=== PATIENT | female | born 1945 | race Caucasian/White ===

== ENCOUNTER 2020-02-21 18:33 | Emergency (ER) | payer BC ==
--- OUTSIDE RECORDS SUMMARY | 2020-02-21 18:36 | XMS REPORT | Continuity of Care Document ---
:1945 Author Organization [facility] t Address [address] [place] [id number] Care Team Providers Name Role Phone Lavelle LAWLER Attending Clinician Problems This patient has no known problems. Allergies, Adverse Reactions, Alerts This patient has no known allergies or adverse reactions. Medications This patient has no known medications. Procedures This patient has no known procedures. Encounters Start End Encounter Admission Attending Care Care Encounter Source Date/Time Date/Time Type Type Clinicians Facility Department ID 2019-12-13 2019-12-13 Emergency E [facility] [id number] [facility] 18:53:00 18:53:00 [facility] 2019-06-24 2019-06-24 Office ANIKA Valderrama [id number] 10:42:59 11:12:59 Visit Frances AMBULATOR [id number] Y [id number] 2019-05-25 2019-05-25 Outpatient E [facility] [id number] [facility] 10:38:00 10:38:00 2018-11-21 2018-11-21 Office ANIKA Valderrama [id number] 30 12:35:54 16:38:29 Visit Frances AMBULATOR [id number] Y [id number] Results This patient has no known results.
[2020-02-21 19:05] LABS: Absolute Lymphocytes (CBC) 0.9 K/uL (0.7-4.9); Basophils % 1.3 % (0-1.3); Hematocrit 39.4 % (36.0-45.0); Lymphocytes % 27.5 % (15.3-44.8); MPV 6.8 fL (7.6-11.3); RBC Red Blood Cell Count 4.26 M/uL (3.86-4.86)
[2020-02-21 19:07] LABS: Protime INR 0.9
[2020-02-21] MEDS ORDERED: NA CHLORIDE 0.9% 500 ML ONE (19:11)
[2020-02-21] MEDS ORDERED: NA CHLORIDE 0.9% 1,000 ML ONE (19:12)
[2020-02-21] MEDS ORDERED: FOLIC ACID 5 MG/ML VIAL ONE (19:12)
[2020-02-21 19:28] LABS: ALT/SGPT 30 U/L (12-78); AST/SGOT 24 U/L (15-37); Albumin 4.4 g/dL (3.4-5.0); Alkaline Phosphatase 47 U/L (45-117); BUN Blood Urea Nitrogen 13 mg/dL (7-18); Bicarbonate 32 mmol/L (21-32); Bilirubin Direct 0.2 mg/dL (0-0.2); Bilirubin Total 0.8 mg/dL (0.2-1.0); Glucose Level 92 mg/dL (74-106); Magnesium 2.3 mg/dL (1.8-2.4); NT PRO-BNP 212 pg/mL (<125); Potassium 3.2 mmol/L (3.5-5.1); Protein, Total 7.6 g/dL (6.4-8.2); Sodium Level 135 mmol/L (136-145); Troponin (Emerg Dept Use Only) < 0.02 ng/mL (0.0-0.045)
--- NOTE | 2020-02-21 19:54 | RAD REPORT ---
EXAM DESCRIPTION: Dylan Single View02/21/2020 7:28 pm CLINICAL HISTORY: cough COMPARISON: none FINDINGS: The lungs are moderately hyperaerated. The lungs appear clear of acute infiltrate. The heart is normal size IMPRESSION: COPD without visualization of acute abnormality
[2020-02-21] MEDS ORDERED: AMLODIPINE 5 MG TAB ONE (20:00)
[2020-02-21] MEDS ORDERED: POTASSIUM 25 MEQ EFFERV TAB ONE (20:00)
[2020-02-21] MEDS ORDERED: LABETALOL HCL 100 MG/20 ML ONE (20:01)
[2020-02-21] MEDS ORDERED: LABETALOL 20 MG/4ML SYRINGE IV ONE (20:26)
--- NOTE | 2020-02-21 20:33 | RAD REPORT ---
EXAM DESCRIPTION: CT - Head Brain Wo Cont - 02/21/2020 8:03 pm CLINICAL HISTORY: Alteration of awareness/confusion COMPARISON: None TECHNIQUE: Computed axial tomography of the head was obtained. IV contrast was not requested. All CT scans are performed using dose optimization technique as appropriate and may include automated exposure control or mA/KV adjustment according to patient size. FINDINGS: An intracranial bleed is not seen . The third and lateral ventricles are prominent. Mild cortical atrophy is present. No extra-axial fluid collection is noted. Mild low-density areas within periventricular, deep and subcortical white matter likely represent isc hemic changes secondary to small vessel disease. Fluid within the sinuses/ mastoids is not seen. IMPRESSION: Third and lateral ventricles are prominent. This may be secondary to white matter atroph y. Normal pressure hydrocephalus can have this appearance but is probably less likely. This should be correlated clinically
[2020-02-21 20:59] LABS: Urine Blood TRACE (NEG); Urine Glucose NEGATIVE (NEG); Urine Protein NEGATIVE (NEG); Urine pH 7.5 (5.0-7.0)
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
--- NOTE | 2020-02-21 21:04 | EDPHYS ---
Physician Documentation [facility] Manuel Name: Taylor Womack Age: 74 yrs Sex: Female : 1945 Arrival Date: 02/21/2020 Time: 18:41 Bed 15 Private MD: ED Physician Rob Monterroso HPI: 02/20 18:52 This 74 yrs old Female presents to ER via EMS with complaints of Altered rajat Mental Status. 18:52 The patient presents with trouble concentrating. Onset: The symptoms/episode rajat began/occurred just prior to arrival. Possible causes: CVA or TIA, head injury, low blood sugar, the patient apparently forgot to eat. Associated signs and symptoms: Pertinent positives: confusion, weakness, at baseline now. Current symptoms: In the emergency department the patient's symptoms have improved, moderately. Patient's baseline: Neuro: alert and fully oriented. The patient has not experienced similar symptoms in the past. Historical: - Allergies: 18:47 No Known Allergies; ll1 - PMHx: 18:47 Hypertension; ll1 - Immunization history:: Flu vaccine is up to date. - Social history:: Smoking status: Patient denies any tobacco usage or history of. - Family history:: not pertinent. ROS: 18:52 Constitutional: Negative for fever, chills, and weight loss, Eyes: Negative for injury, rajat pain, redness, and discharge, ENT: Negative for injury, pain, and discharge, Neck: Negative for injury, pain, and swelling, Cardiovascular: Negative for chest pain, palpitations, and edema, Respiratory: Negative for shortness of breath, cough, wheezing, and pleuritic chest pain, Abdomen/GI: Negative for abdominal pain, nausea, vomiting, diarrhea, and constipation, Back: Negative for injury and pain, : Negative for injury, bleeding, discharge, and swelling, MS/Extremity: Negative for injury and deformity, Skin: Negative for injury, rash, and discoloration, Psych: Negative for depression, anxiety, suicide ideation, homicidal ideation, and hallucinations, Allergy/Immunology: Negative for hives, rash, and allergies, Endocrine: Negative for neck swelling, polydipsia, polyuria, polyphagia, and marked weight changes, Hematologic/Lymphatic: Negative for swollen nodes, abnormal bleeding, and unusual bruising. 18:52 Neuro: Positive for altered mental status, weakness. Exam: 18:52 Constitutional: This is a well developed, well nourished patient who is awake, alert, rajat and in no acute distress. Head/Face: Normocephalic, atraumatic. Eyes: Pupils equal round and reactive to light, extra-ocular motions intact. Lids and lashes normal. Conjunctiva and sclera are non-icteric and not injected. Cornea within normal limits. Periorbital areas with no swelling, redness, or edema. ENT: Nares patent. No nasal discharge, no septal abnormalities noted. Tympanic membranes are normal and external auditory canals are clear. Oropharynx with no redness, swelling, or masses, exudates, or evidence of obstruction, uvula midline. Mucous membranes moist. Neck: Trachea midline, no thyromegaly or masses palpated, and no cervical lymphadenopathy. Supple, full range of motion without nuchal rigidity, or vertebral point tenderness. No Meningismus. Chest/axilla: Normal chest wall appearance and motion. Nontender with no deformity. No lesions are appreciated. Cardiovascular: Regular rate and rhythm with a normal S1 and S2. No gallops, murmurs, or rubs. Normal PMI, no JVD. No pulse deficits. Respiratory: Lungs have equal breath sounds bilaterally, clear to auscultation and percussion. No rales, rhonchi or wheezes noted. No increased work of breathing, no retractions or nasal flaring. Abdomen/GI: Soft, non-tender, with normal bowel sounds. No distension or tympany. No guarding or rebound. No evidence of tenderness throughout. Back: No spinal tenderness. No costovertebral tenderness. Full range of motion. Female : Normal external genitalia. Skin: Warm, dry with normal turgor. Normal color with no rashes, no lesions, and no evidence of cellulitis. MS/ Extremity: Pulses equal, no cyanosis. Neurovascular intact. Full, normal range of motion. Neuro: Awake and alert, GCS 15, oriented to person, place, time, and situation. Cranial nerves II-XII grossly intact. Motor strength 5/5 in all extremities. Sensory grossly intact. Cerebellar exam normal. Normal gait. Psych: Awake, alert, with orientation to person, place and time. Behavior, mood, and affect are within normal limits. 19:16 ECG was reviewed by the Attending Physician. [facility] Vital Signs: 18:41 BP 195 / 106; Pulse 73; Resp 16; Temp 97.7(O); Pulse Ox 100% on R/A; Weight 45.36 kg; 3 Height 5 ft. 8 in. (172.72 cm); Pain 0/10; 19:30 BP 206 / 110; Pulse 67; Resp 16; Pulse Ox 100% on R/A; jb4 20:30 BP 174 / 96; Pulse 67; Resp 16; Pulse Ox 100% on R/A; jb4 21:30 BP 156 / 86; Pulse 70; Resp 16; Pulse Ox 98% on R/A; jb4 18:41 Body Mass Index 15.20 (45.36 kg, 172.72 cm) 3 NIH Stroke Scale Scores: 18:52 NIHSS Score: 0 rajat MDM: 18:42 Patient medically screened. rajat 18:55 Differential Diagnosis: CVA, electrolyte abnormality, hypoglycemia, pneumonia, TIA, rajat UTI, volume depletion. Data reviewed: vital signs, nurses notes, lab test result(s), EKG, radiologic studies. Data interpreted: patient monitor: rate is 73 beats/min, rhythm is regular, Pulse oximetry: on room air is 100 %. Test interpretation: by ED physician or midlevel provider: ECG, plain radiologic studies. Counseling: I had a detailed discussion with the patient and/or guardian regarding: the historical points, exam findings, and any diagnostic results supporting the discharge/admit diagnosis, lab results, radiology results, the need for further work-up and treatment in the hospital. 21:01 ED course: I discussed the patient with Dr. Sams whom accepted the patient for [facility] admission. . 02/20 18:52 Order name: Basic Metabolic Panel; Complete Time: 19:36 [facility] 02/20 18:52 Order name: CBC with Diff; Complete Time: 19:15 [facility] 02/20 18:52 Order name: LFT's; Complete Time: 19:36 [facility] 02/20 18:52 Order name: Magnesium; Complete Time: 19:36 [facility] 02/20 18:52 Order name: NT PRO-BNP; Complete Time: 19:36 [facility] 02/20 18:52 Order name: PT-INR; Complete Time: 19:15 [facility] 02/20 18:52 Order name: Troponin (emerg Dept Use Only); Complete Time: 19:36 [facility] 02/20 18:52 Order name: XRAY Chest (1 view); Complete Time: 20:08 [facility] 02/20 18:52 Order name: CT Head Brain wo Cont; Complete Time: 20:34 [facility] 02/20 18:52 Order name: Urine Culture [facility] 02/20 19:05 Order name: Sed Rate; Complete Time: 19:51 [facility] 02/20 19:05 Order name: CRP; Complete Time: 19:36 [facility] 02/20 20:47 Order name: Urine Dipstick--Ancillary (enter results); Complete Time: 21:00 [facility] 02/20 18:52 Order name: EKG; Complete Time: 18:52 [facility] 02/20 18:52 Order name: Cardiac monitoring; Complete Time: 19:30 [facility] 02/20 18:52 Order name: EKG - Nurse/Tech; Complete Time: 18:54 [facility] 02/20 18:52 Order name: IV Saline Lock; Complete Time: 19:05 [facility] 02/20 18:52 Order name: Labs collected and sent; Complete Time: 19:05 [facility] 02/20 18:52 Order name: O2 Per Protocol; Complete Time: 19:05 [facility] 02/20 18:52 Order name: O2 Sat Monitoring; Complete Time: 19:05 [facility] 02/20 18:52 Order name: Urine Dipstick-Ancillary (obtain specimen); Complete Time: 20:47 [facility] 02/20 19:53 Order name: Misc. Order: need urine for dispo; Complete Time: 20:47 jm EC:16 Rate is 69 beats/min. Rhythm is regular. QRS [place] is Normal. HI interval is normal. QRS rajat interval is normal. QT interval is normal. No Q waves. T waves are Normal. ST Segment is depressed in leads II, III, aVF, V5, V6. Clinical impression: NSR w/ Non-specific ST/T Changes. Interpreted by me. Reviewed by me. Administered Medications: 19:04 Drug: NS 0.9% 500 ml Route: IV; Rate: bolus; Site: right antecubital; ll1 19:04 Drug: NS 0.9% 1000 ml Route: IV; Rate: 125 ml/hr; Site: right antecubital; ll1 19:04 Drug: foLIC Acid 1 mg Route: IVPB; Site: right antecubital; ll1 20:27 Drug: Potassium Effervescent Tablet 25 mEq Route: PO; jb4 21:37 Follow up: Response: No adverse reaction jb4 20:27 Drug: Trandate 10 mg Route: IVP; Site: right antecubital; jb4 21:36 Follow up: Response: No adverse reaction; Blood pressure is lowered jb4 20:27 Drug: Norvasc 5 mg Route: PO; jb4 21:29 Follow up: Response: No adverse reaction; Blood pressure is lowered jb4 Disposition: 02/21/20 21:12 Discharged to Home. Impression: Hypertension. - Condition is Stable. - Discharge Instructions: Hypertension. - Medication Reconciliation Form, Thank You Letter, Antibiotic Education, Prescription Opioid Use form. - Follow up: Private Physician; When: 2 - 3 days; Reason: Recheck today's complaints, Continuance of care, Re-evaluation by your physician. NIH Stroke Scale - NIH Stroke Score Date: 02/21/2020 Time: 18:52 Total Score = 0 1a. Level of Consciousness (LOC) - 0(Alert) 1b. Level of Consciousness (LOC) (Year \T\ Age) - 0(Both) 1c. LOC Commands (Open \T\ Closes Eyes/Refinery Operator Reforming Unit) - 0(Both) 2. Best Gaze (Lateral Gaze Paresis) - 0(Normal) 3. Visual Field Loss - 0(No visual loss) 4. Facial Palsy - 0(Normal) 5a. Left Arm: Motor (10-second hold) - 0(No drift) 5b. Right Arm: Motor (10-second hold) - 0(No drift) 6a. Left Leg: Motor (5-second hold - always test supine) - 0(No drift) 6b. Right Leg: Motor (5-second hold - always test supine) - 0(No drift) 7. Limb Ataxia (finger/nose \T\ heel/salcedo - test with eyes open) - 0(Absent) 8. Sensory Loss (pinprick arms/legs/face) - 0(Normal) 9. Best Language: Aphasia (description/naming/reading) - 0(No aphasia) 10. Dysarthria (speech clarity - read or repeat words) - 0(Normal) 11. Extinction and Inattention (visual/tactile/auditory/spatial/personal) - 0(No abnormality) Initials: rajat Addendum: 02/23/2020 08:50 Co-signature as Attending Physician, Rob Monterroso MD I agree with the rajat assessment and plan of care. Signatures: Dispatcher [employer] EDRob Huggins MD MD cha Mickail, Joel, PA PA [facility] Kelechi Davis, RN RN jb4 Danny Chowdary RN RN ll1 Corrections: (The following items were deleted from the chart) 11 21:12 21:04 Hospitalization Ordered by Memo Sams for Observation. Preliminary [facility] diagnosis is Altered mental status, unspecified; Hypertension. Bed requested for Telemetry/MedSurg (observation). Status is Observation. Condition is Stable. Problem is new. Symptoms are unchanged. [facility] 21:39 21:12 02/21/2020 21:12 Discharged to Home. Impression: Hypertension. Condition jb4 is Stable. Forms are Medication Reconciliation Form, Thank You Letter, Antibiotic Education, Prescription Opioid Use. Follow up: Private Physician; When: 2 - 3 days; Reason: Recheck today's complaints, Continuance of care, Re-evaluation by your physician. theodore
[2020-02-21 21:59] VITALS: TEMP 97.7
[2020-02-21 22:17] VITALS: BP 156/86; O2SAT 98
--- NOTE | 2020-02-23 07:26 | EKG ---
Test Date: 2020-02-21 Test Time: 18:49:55 Forming Roll Operator Heavy Duty: DARYL MEASUREMENT RESULTS: Intervals: Rate: 69 CT: 188 QRSD: 106 QT: 444 QTc: 475 Divide: P: 75 CT: 188 QRS: 75 T: 90 INTERPRETIVE STATEMENTS: Normal sinus rhythm Nonspecific ST abnormality Abnormal ECG No previous ECG available for comparison Electronically Signed On 02-23-20 07:23:42 PROJECT CONTROL ANALYST by Kirit Ng
== END 2020-02-21 21:39 | disposition home or self-care (01) ==
LOC: ER 18:33
DX: I10 Essential (primary) hypertension (principal)
CPT/HCPCS: 93005; 87088; 85025; 87086; 80048; 36415; 83735; 85610; 80076; 85652; 81003; 84484; 83880; 86140; 70450; 71045; 96375; 96374; 99285; J7040; J7030